=== PATIENT | female | born 1990 | race American Indian/Alaskan Native ===

== ENCOUNTER 2017-01-19 19:01 | Emergency (ER) | payer MEDICAID ==
[2017-01-19 19:17] VITALS: BP 111/72; PULSE 82; RESP 20; TEMP 98.2; O2SAT 99
== END 2017-01-19 19:11 | disposition left against medical advice (07) ==
LOC: C.ER 19:01
DX: O20.9 Hemorrhage in early pregnancy, unspecified (principal); Z3A.01 Less than 8 weeks gestation of pregnancy; Z02.9 Encounter for administrative examinations, unspecified

== ENCOUNTER 2017-02-19 18:23 | Emergency (ER) | payer MEDICAID ==
[2017-02-19 18:37] VITALS: BMI 34.9
[2017-02-19 18:39] VITALS: RESP 18
--- NOTE | 2017-02-19 19:39 | C.PDOC ---
History Of Present Illness A 26 y/o/ female with a Hx of and is 12 weeks , comes in c/o lower abdominal pain since yesterday. Pt denies dysuria, hematuria, vaginal bleeding or discharge, fever, chills, nausea, vomiting, or diarrhea. Time Seen by Provider: 02/19/17 19:29 Chief Complaint (Nursing): Female Genitourinary History Per: Patient History/Exam Limitations: no limitations Onset/Duration Of Symptoms: Days Current Symptoms Are (Timing): Still Present Severity: Mild Quality Of Discomfort: "Pain" Associated Symptoms: denies: Fever, Chills, Nausea, Vomiting, Diarrhea Recent travel outside of the [place]: No Additional History Per: Patient Abnormal Vaginal Bleeding: No Past Medical History Reviewed: Historical Data, Nursing Documentation, Vital Signs Vital Signs: Last Vital Signs Temp 98.5 F 02/19/17 21:17 Pulse 73 02/19/17 21:17 Resp 18 02/19/17 21:17 BP 118/71 02/19/17 21:17 Pulse Ox 99 02/19/17 21:17 Surgical History: Cholecystectomy Family History: States: Unknown Family Hx - Social History Hx Alcohol Use: No Hx Substance Use: No - Immunization History Hx Tetanus Toxoid Vaccination: No Hx Influenza Vaccination: No Hx Pneumococcal Vaccination: No Review Of Systems Except As Marked, All Systems Reviewed And Found Negative. Constitutional: Negative for: Fever, Chills Gastrointestinal: Positive for: Abdominal Pain (Lower abdominal pain). Negative for: Nausea, Vomiting, Diarrhea Genitourinary: Negative for: Dysuria, Hematuria, Vaginal Discharge, Vaginal Bleeding Physical Exam - Physical Exam Appears: Non-toxic, No Acute Distress Skin: Warm, Dry Head: Atraumatic, Normacephalic Eye(s): bilateral: Normal Inspection, PERRL, EOMI Neck: Supple Chest: Symmetrical Cardiovascular: Rhythm Regular, No Murmur Respiratory: Normal Breath Sounds, No Rales, No Rhonchi, No Wheezing Gastrointestinal/Abdominal: Soft, No Tenderness Pelvic: No Vaginal Bleeding, No Vaginal Discharge Neurological/Psych: Oriented x3, Normal Speech, Normal Cognition, Other (No focal deficit) Gait: Steady ED Course And Treatment O2 Sat by Pulse Oximetry: 100 (RA) Pulse Ox Interpretation: Normal - CT Scan/US US ' Other Rad Studies (CT/US): Interpreted By Me, Read By Radiologist CT/US Interpretation: EXAM: US First Trimester, Transabdominal. CLINICAL HISTORY: 26 years old, female; Pain; complicated by abdominal or pelvic pain; Lower; First. trimester; Gestational age or lmp: ; ; Additional info: Lower abd pain. TECHNIQUE: Real-time transabdominal obstetrical ultrasound of the maternal pelvis and a first trimester. with image documentation. EXAM DATE/TIME: Exam ordered 7:37 PM. COMPARISON: No relevant prior studies available. FINDINGS: Gestation: There is a single intrauterine gestational sac. The sac measures 5.5 x 1.8 x 4 cm for a. mean sac diameter of 3.8 cm for a mass related 9 weeks and 0 days. There is a pole with a. crown-rump length measurement of 3.83 cm for a menstrual age of 10 weeks and 5 days. Cardiac. activity was noted at a rate of 152 beats per minute. Placenta/amniotic fluid: Cannot be adequately evaluated due to the early gestational age. Uterus/cervix: The uterus measures 13.0 x 6.6 x 7.3 cm. The cervix is closed at the time of. examination and measures 4.2 cm in length. Ovaries: The right ovary measures 3.9 x 3.7 x 3.3 cm. Flow is seen in the right ovary on color. Doppler examination. A subcentimeter follicles present in the right ovary. The left ovary measures. 3.7 x 2.3 x 3.6 cm. Blood flow seen in the left a rib color Doppler examination. No mass. Free fluid: No free fluid. IMPRESSION: 1. Single live intrauterine with an estimated menstrual age of 10 weeks and 5 days Medical Decision Making Medical Decision Making: Impression: 26 y/o c/o lower abdominal pain since yesterday Plans: UA, US Pelvis, reassess Disposition Counseled Patient/Family Regarding: Diagnosis - Disposition Referrals: [facility] [Outside] Disposition: HOME/ ROUTINE Disposition Time: 20:57 Condition: STABLE Prescriptions: Acetaminophen [Tylenol 325mg tab] 650 mg PO Q4 #20 tab Instructions: (ED), Abdominal Pain in (ED) Forms: Work/School/Gym Excuse - POA Present On Arrival: None - Clinical Impression Clinical Impression: , Abdominal pain during - Scribe Statement The provider has reviewed the documentation as recorded by the Scribe Mohamed christine All medical record entries made by the Mukesh were at my direction and personally dictated by me. I have reviewed the chart and agree that the record accurately reflects my personal performance of the history, physical exam, medical decision making, and the department course for this patient. I have also personally directed, reviewed, and agree with the discharge instructions and disposition.
[2017-02-19 20:18] LABS: RBC URINE 1 /hpf (0-3); URINE BACTERIA RARE (<OCC); URINE BILIRUBIN NEGATIVE (NEGATIVE); URINE BLOOD NEGATIVE (NEGATIVE); URINE CALCIUM OXALATE CRYSTALS OCC /hpf (<OCC); URINE COLOR Yellow (YELLOW); URINE GLUCOSE (UA) NORMAL (Normal); URINE KETONE NEGATIVE (NEGATIVE); URINE LEUKOCYTE ESTERASE NEG Leu/uL (Negative); URINE PROTEIN NEGATIVE (NEGATIVE); URINE UROBILINOGEN NORMAL mg/dL (0.2-1.0); WBC URINE 2 /hpf (0-5)
--- NOTE | 2017-02-19 20:41 | US ---
EXAM: US First Trimester, Transabdominal CLINICAL HISTORY: 26 years old, female; Pain; complicated by abdominal or pelvic pain; Lower; First trimester; Gestational age or lmp: 12/05/2016; ; Additional info: Lower abd pain TECHNIQUE: Real-time transabdominal obstetrical ultrasound of the maternal pelvis and a first trimester with image documentation. EXAM DATE/TIME: Exam ordered 02/19/2017 7:37 PM COMPARISON: No relevant prior studies available. FINDINGS: Gestation: There is a single intrauterine gestational sac. The sac measures 5.5 x 1.8 x 4 cm for a mean sac diameter of 3.8 cm for a mass related 9 weeks and 0 days. There is a pole with a crown-rump length measurement of 3.83 cm for a menstrual age of 10 weeks and 5 days. Cardiac activity was noted at a rate of 152 beats per minute. Placenta/amniotic fluid: Cannot be adequately evaluated due to the early gestational age. Uterus/cervix: The uterus measures 13.0 x 6.6 x 7.3 cm. The cervix is closed at the time of examination and measures 4.2 cm in length. Ovaries: The right ovary measures 3.9 x 3.7 x 3.3 cm. Flow is seen in the right ovary on color Doppler examination. A subcentimeter follicles present in the right ovary. The left ovary measures 3.7 x 2.3 x 3.6 cm. Blood flow seen in the left a rib color Doppler examination. No mass. Free fluid: No free fluid. IMPRESSION: 1. Single live intrauterine with an estimated menstrual age of 10 weeks and 5 days.
[2017-02-19 21:18] VITALS: BP 118/71; PULSE 73; TEMP 98.5
[2017-02-19 21:25] VITALS: O2SAT 100
== END 2017-02-19 21:00 | disposition home or self-care (01) ==
LOC: C.ER 18:23
DX: O26.891 Other specified pregnancy related conditions, first trimester (principal); R10.30 Lower abdominal pain, unspecified; Z3A.10 10 weeks gestation of pregnancy